=== PATIENT | male | born 1950 | race Native Hawaiian/Other Pacific Islander ===

== ENCOUNTER 2016-10-10 07:19 | Outpatient (CLI) | payer OTHER ==
[2017-03-10] MEDS ORDERED: BAYER ASPIRIN E81 MG PO (01:57)
[2017-03-10] MEDS ORDERED: BENICAR20 MG PO (01:58)
[2017-03-10] MEDS ORDERED: HYDR25TA60 PO (01:59)
[2017-03-10] MEDS ORDERED: SPIRONOLACT25 MG PO (01:59)
[2017-03-10] MEDS ORDERED: PACERONE200 MG PO (02:00)
[2017-03-10] MEDS ORDERED: NITROSTAT0.4 MG SL (02:01)
== END 2016-10-10 08:19 | disposition home or self-care (01) ==
LOC: NM 07:19
DX: R07.89 Other chest pain (principal); R06.02 Shortness of breath
CPT/HCPCS: A9500

== ENCOUNTER 2017-03-10 01:44 | Inpatient (IN) | payer OTHER ==
[~2017-03-10] VITALS: Ht 180.3 cm; Wt 112.5 kg
[2017-03-10] VITALS (41 sets, daily range): BP systolic 85–126; BP diastolic 46–85; TEMP 97.8–98.2; Ht 180.3 cm; Wt 112.5 kg
[2017-03-10] MEDS ORDERED: BAYER ASPIRIN E81 MG PO ×2 (01:57)
[2017-03-10] MEDS ORDERED: BENICAR20 MG PO ×2 (01:58)
[2017-03-10] MEDS ORDERED: HYDR25TA60 PO ×2 (01:59)
[2017-03-10] MEDS ORDERED: SPIRONOLACT25 MG PO ×2 (01:59)
[2017-03-10] MEDS ORDERED: PACERONE200 MG PO ×2 (02:00)
[2017-03-10] MEDS ORDERED: NITROSTAT0.4 MG SL ×2 (02:01)
[2017-03-10 02:33] LABS: PLATELET COUNT 236 K/uL (142-355)
[2017-03-10 02:42] LABS: POTASSIUM 3.7 mmol/L (3.6-5.2); SODIUM 139 mmol/L (136-145)
[2017-03-10 10:03] LABS: PLATELET COUNT 215 K/uL (142-355)
[2017-03-10 10:11] LABS: POTASSIUM 3.8 mmol/L (3.6-5.2); SODIUM 139 mmol/L (136-145)
[2017-03-11] VITALS (11 sets, daily range): BP systolic 104–128; BP diastolic 47–80; TEMP 97.2–98
[2017-03-11 06:20] LABS: PLATELET COUNT 208 K/uL (142-355)
[2017-03-11 06:34] LABS: POTASSIUM 4.3 mmol/L (3.6-5.2); SODIUM 135 mmol/L (136-145)
== END 2017-03-11 13:35 | disposition home or self-care (01) | DRG 310 ==
LOC: ED 01:44 → MED/SURG 03:45 → ICU 03:45
PROVIDERS: Emergency Medicine
DX: I48.91 Unspecified atrial fibrillation (principal)
CPT/HCPCS: 36415; 80053; 82550; 83735; 83880; 84100; 84484; 85027; 85610; 85730; 86141; 93005; 96361; 96372; 96374; 96376; 99285; J1644; J3475; J3490

== ENCOUNTER 2017-03-14 08:42 | Emergency (ER) | payer OTHER ==
[~2017-03-14] VITALS: Ht 181.6 cm; Wt 112.5 kg
[~2017-03-14 08:42] MED LIST: BAYER ASPIRIN E81 MG PO; BENICAR20 MG PO; HYDR25TA60 PO; NITROSTAT0.4 MG SL; PACERONE200 MG PO; SPIRONOLACT25 MG PO
[2017-03-14 09:23] LABS: PLATELET COUNT 228 K/uL (142-355); SODIUM 136 mmol/L (136-145)
[2017-03-14 09:43] LABS: PARTIAL THROMBOPLASTIN TIME 26.5 SECONDS (24.5-33.6)
[2017-03-14 12:16] VITALS: BP 113/76; TEMP 98
== END 2017-03-14 12:27 | disposition home or self-care (01) ==
LOC: ED 08:42
PROVIDERS: Specialist
DX: I48.91 Unspecified atrial fibrillation (principal); R00.8 Other abnormalities of heart beat
CPT/HCPCS: 36415; 80053; 82550; 83735; 83880; 84100; 84484; 85027; 85379; 85610; 85730; 93005; 96374; 99284; J0282

== ENCOUNTER 2018-01-01 16:29 | Outpatient (CLI) | payer OTHER | END 2018-01-01 19:38 | disposition home or self-care (01) | LOC: US 16:29 | DX: R60.0 Localized edema (principal) ==

== ENCOUNTER 2018-11-25 11:07 | Outpatient (CLI) | payer OTHER ==
[2018-11-25 11:40] LABS: PLATELET COUNT 215 K/uL (142-355)
[2018-11-25 11:50] LABS: POTASSIUM 4.6 mmol/L (3.6-5.2)
== END 2018-11-25 20:07 | disposition home or self-care (01) ==
LOC: LABW 11:07
PROVIDERS: Internal Medicine Cardiovascular Disease
DX: Z79.899 Other long term (current) drug therapy (principal); E78.5 Hyperlipidemia, unspecified
CPT/HCPCS: 36415; 80053; 80061; 85027

== ENCOUNTER 2019-10-16 16:39 | Observation (INO) | payer OTHER ==
[~2019-10-16] VITALS: Ht 180.3 cm; Wt 108.6 kg
[2019-10-16 16:53] VITALS: BP 91/35; TEMP 97.4
[2019-10-16 17:30] LABS: PLATELET COUNT 240 K/uL (142-355)
[2019-10-16 17:33] LABS: SODIUM 145 mmol/L (136-145)
[2019-10-16 17:36] LABS: PARTIAL THROMBOPLASTIN TIME 20.8 SECONDS (24.5-33.6)
[2019-10-16 18:21] VITALS: BP 108/56
[2019-10-16 19:15] VITALS: BP 104/54
[2019-10-16 19:45] VITALS: BP 119/53
[2019-10-16 20:14] VITALS: BP 119/62; TEMP 98.2; Ht 180.3 cm; Wt 108.6 kg
--- NOTE | 2019-10-16 22:32 | NUR ---
10/16/20191999 PT TO ROOM 1107 DX CHESTPAIN.PT BROUGHT IN FROM ER VIA WHEELCAHIR.SALINE LOCK INTACT 20 GAUDGE TO LT AC.ORIENTED TO ROOM CALL LIGHT WITHIN REACH. PRESENT IN ROOM.CC
[2019-10-17] VITALS: BP 122/63; TEMP 98.1
--- NOTE | 2019-10-17 02:17 | NUR ---
PT IS WEARING O2 VIA NC AT 2LPM AT THIS TIME WHILE RT WAS PERFORMING PTS. EKG.
--- NOTE | 2019-10-17 02:48 | NUR ---
10/17/2019 0155 NOTED ON HEART MONITOR A CHANGE IN HEART RATE WAS IRREGULAR JUMPING FROM 50 GOING TO 130-150.PT WAS IN BED SLEEPING NO DISTRESS NOTED. VITAL SIGNS OBTAINED B/P 104/62 O2 SATURATION 90-91 PLACED OXYGEN ON HIM.PT STATES HE IS NOT HAVING ANY DISTRESS.RESP AND LAB CALLED TO COME AND DRAW EKG AND CE NOW.CC 10/17/2019 0225 WENT TO ER SPOKE WITH PHYSICAN SHOWED HER EKG WHICH SHOWED AFIB RBBB.ALSO TOLD HER WE HAVE DRAWN CE IN PROGRESS.SHE SAID TO GO AHEAD AND GIVE HIM HIS AMIODARONE 100MG WHICH IS HIS REGULAR DAILY MEDICATION.PT STATES HE TOOK HIS MEICATION YESTERDAY MORNING.CC
--- NOTE | 2019-10-17 02:56 | NUR ---
10/17/2019 0228 AMIODARONE 100MG GIVEN.PT IS NO DISTRESS AT THIS TIME CALL LIGHT WITHIN RATE.HEART RATE IS IN 140-150.
--- NOTE | 2019-10-17 03:51 | NUR ---
10/17/2019 0340 ER PHYSICAN NOTIFIED OF PATIENT HEART RATE STILL IN 140-150 AFTER RECEIVING MEDICATION AMIODARONE 100MG NEW ORDER RECEIVED TO GIVE FLUID BOLUS 200-300ML.B/P 113/78 140-150.OXYGEN 93 PERCENT.. 10/17/2019 0400 NOTICED HEART RATE ON TELEMENTRY CHANGED TO 63.AT SAME TIME DR. PETIT WALKED IN TOLD HER ABOUT HEART RATE CHANGE. WENT IN TO SPEAK WITH PATIENT ABOUT PLAN OF CARE.PT SAID HE WOULD BE FINE TO GO TO [facility] TO SEE CONSTRUCTION JOB COST ESTIMATOR FOR CARE. SAID NO NEED TO GIVE FLUIDS AT THIS TIME.SHE TOLD PATIENT SHE WILL LET HIM KNOW ANY FURTHER DETAILS CONCERNING TRANSFER.CC
[2019-10-17 04:00] VITALS: BP 113/78; TEMP 98.6
--- NOTE | 2019-10-17 04:05 | NUR ---
10/17/2019 0408 HEART RATE 77 ON HEART MONITOR NO ACUTE DISTRESS NOTED.CC
--- NOTE | 2019-10-17 04:46 | NUR ---
10/17/2019 0440 WILL HOLD TRANSFER AT THIS TIME PER STATED PER ER NURSE CU[place].CC
--- NOTE | 2019-10-17 05:21 | NUR ---
10/17/2019 0520 SPOKE WITH PATIENT CONCERNING CHANGE IN PLAN . CANCELLED TRANSFER TO [facility].WILL BE TRANSFERRING TO [facility]. SAID SHE SPOKE WITH ACCEPTING PHYSICAN HOSP IN GROUP WHICH HAS ACCEPTED PATIENT.CC
--- NOTE | 2019-10-17 06:06 | NUR ---
10/17/2019 0550 SPOKE WITH JANELL BATOOL TO GIVE REPORT FOR TRANSFER.PT IS GOING TO ROOM [address]ROY ONOFRE CARDIOGOLIST IN GROUP WITH DR. STEWART.CC
--- NOTE | 2019-10-17 06:32 | NUR ---
10/17/2019 0635 PT CARRIED OUT VIA STRETCHER PER EMS TO [facility] CCU ROOM 131.
--- NOTE | 2019-10-17 10:32 | NUR ---
Patient was admited with Chest Pain, Abdominla Pain, epigastric burning a first time occurance, pain started after eating, HTN, non-smoked, 69YO male, increase MCV, and is nitroglycerin, and is on a 2 gm Na diet plan. Patient is 5'11' at 239.5 lbs. IBW= 172+/-10% (155-189 lbs.) kcal needs 2000 kcal/day x 25, x 30 = 2345, x 35 = 2700, x 40 = 3100 kcal/day, Protein needs x .8 to 1.5 = 63 to 117 grams per day. BMI = 33.46 and is Class I Obesity and is 140% IBW. Recommend: 1-NCS High Fiber Cardiac Diet and may want to avoid acid foods 2-Healthier Eating Habits
== END 2019-10-17 19:07 | disposition short-term general hospital (02) ==
LOC: ED 16:39 → MED/SURG 19:20
PROVIDERS: Emergency Medicine; ADMIT Family Medicine
DX: I48.91 Unspecified atrial fibrillation (principal); R07.89 Other chest pain; E86.0 Dehydration; I10 Essential (primary) hypertension; R73.9 Hyperglycemia, unspecified
CPT/HCPCS: 36415; 80053; 82550; 82553; 82962; 83036; 83690; 83735; 84484; 85027; 85610; 85730; 93005; 94760; 96360; 96365; 96375; 99220; 99284; G0378; J3490

== ENCOUNTER 2019-10-17 06:43 | Outpatient (CLI) | payer OTHER | END 2019-10-17 07:56 | disposition short-term general hospital (02) | LOC: AMB 06:43 | DX: R94.31 Abnormal electrocardiogram [ECG] [EKG] (principal); I45.2 Bifascicular block | CPT/HCPCS: A0425; A0427 ==

== ENCOUNTER 2019-11-03 11:13 | Outpatient (CLI) | payer OTHER | END 2019-11-03 20:22 | disposition home or self-care (01) | LOC: LABW 11:13 | DX: I48.91 Unspecified atrial fibrillation (principal) | CPT/HCPCS: 36415; 85610 ==

== ENCOUNTER 2019-11-09 05:28 | Outpatient (CLI) | payer OTHER | END 2019-11-09 22:17 | disposition home or self-care (01) | LOC: LABW 05:28 | DX: I48.91 Unspecified atrial fibrillation (principal) | CPT/HCPCS: 36415; 85610 ==

== ENCOUNTER 2019-11-25 15:28 | Outpatient (CLI) | payer OTHER | END 2019-11-25 19:15 | disposition home or self-care (01) | LOC: US 15:28 | DX: I73.9 Peripheral vascular disease, unspecified (principal) ==

== ENCOUNTER 2019-12-08 11:28 | Outpatient (CLI) | payer OTHER | END 2019-12-08 19:22 | disposition home or self-care (01) | LOC: LABW 11:28 | DX: Z51.81 Encounter for therapeutic drug level monitoring (principal); Z79.899 Other long term (current) drug therapy | CPT/HCPCS: 36415; 85610 ==

== ENCOUNTER 2019-12-15 21:59 | Outpatient (CLI) | payer OTHER | END 2019-12-15 22:29 | disposition home or self-care (01) | LOC: LABW 21:59 | DX: I48.91 Unspecified atrial fibrillation (principal) | CPT/HCPCS: 36415; 85610 ==

== ENCOUNTER 2020-04-24 13:00 | Outpatient (CLI) | payer OTHER | END 2020-04-24 20:05 | disposition home or self-care (01) | LOC: LABW 13:00 | DX: I48.91 Unspecified atrial fibrillation (principal) | CPT/HCPCS: 36415; 85610 ==

== ENCOUNTER 2020-05-17 09:00 | Outpatient (CLI) | payer OTHER | END 2020-05-17 19:42 | disposition home or self-care (01) | LOC: LABW 09:00 | DX: I48.91 Unspecified atrial fibrillation (principal) | CPT/HCPCS: 36415; 85610 ==

== ENCOUNTER 2020-05-25 08:42 | Outpatient (CLI) | payer OTHER | END 2020-05-25 21:04 | disposition home or self-care (01) | LOC: LABW 08:42 | DX: I48.91 Unspecified atrial fibrillation (principal) | CPT/HCPCS: 36415; 85610 ==

== ENCOUNTER 2020-07-04 08:04 | Outpatient (CLI) | payer OTHER | END 2020-07-04 19:26 | disposition home or self-care (01) | LOC: LABW 08:04 | DX: I48.91 Unspecified atrial fibrillation (principal) | CPT/HCPCS: 36415; 85610 ==

== ENCOUNTER 2020-07-11 07:54 | Outpatient (CLI) | payer OTHER | END 2020-07-12 00:18 | disposition home or self-care (01) | LOC: US 07:54 → LABW 07:54 | DX: M25.561 Pain in right knee (principal); M17.11 Unilateral primary osteoarthritis, right knee; M54.5 Low back pain; I73.9 Peripheral vascular disease, unspecified; M51.37 Other intervertebral disc degeneration, lumbosacral region | CPT/HCPCS: 36415; 85610 ==

== ENCOUNTER 2020-07-20 08:26 | Outpatient (CLI) | payer OTHER | END 2020-07-20 22:12 | disposition home or self-care (01) | LOC: LABW 08:26 | DX: I48.91 Unspecified atrial fibrillation (principal) | CPT/HCPCS: 36415; 85610 ==

== ENCOUNTER 2020-08-14 08:31 | Outpatient (CLI) | payer OTHER | END 2020-08-14 19:04 | disposition home or self-care (01) | LOC: LABW 08:31 | DX: I48.91 Unspecified atrial fibrillation (principal) | CPT/HCPCS: 36415; 85610 ==

== ENCOUNTER 2020-10-09 08:41 | Outpatient (CLI) | payer OTHER | END 2020-10-09 21:06 | disposition home or self-care (01) | LOC: LABW 08:41 | PROVIDERS: ATTEND Internal Medicine Cardiovascular Disease | DX: I48.91 Unspecified atrial fibrillation (principal) | CPT/HCPCS: 36415; 85610 ==

== ENCOUNTER 2020-10-25 07:12 | Outpatient (CLI) | payer OTHER | END 2020-10-25 19:17 | disposition home or self-care (01) | LOC: LABW 07:12 | PROVIDERS: ATTEND Internal Medicine Cardiovascular Disease | DX: I48.91 Unspecified atrial fibrillation (principal) | CPT/HCPCS: 36415; 85610 ==

== ENCOUNTER 2020-10-27 07:56 | Outpatient (CLI) | payer OTHER | END 2020-10-27 19:33 | disposition home or self-care (01) | LOC: LABW 07:56 | PROVIDERS: ATTEND Internal Medicine Cardiovascular Disease | DX: I48.91 Unspecified atrial fibrillation (principal) | CPT/HCPCS: 36415; 85610 ==

== ENCOUNTER 2020-10-31 07:54 | Outpatient (CLI) | payer OTHER | END 2020-10-31 21:27 | disposition home or self-care (01) | LOC: LABW 07:54 | PROVIDERS: ATTEND Internal Medicine Cardiovascular Disease | DX: I48.91 Unspecified atrial fibrillation (principal) | CPT/HCPCS: 36415; 85610 ==

== ENCOUNTER 2020-11-03 08:06 | Outpatient (CLI) | payer OTHER | END 2020-11-03 22:56 | disposition home or self-care (01) | LOC: LABW 08:06 | PROVIDERS: ATTEND Internal Medicine Cardiovascular Disease | DX: I48.91 Unspecified atrial fibrillation (principal) | CPT/HCPCS: 36415; 85610 ==

== ENCOUNTER 2020-11-13 08:48 | Outpatient (CLI) | payer OTHER | END 2020-11-13 19:15 | disposition home or self-care (01) | LOC: LABW 08:48 | PROVIDERS: ATTEND Internal Medicine Cardiovascular Disease | DX: I48.91 Unspecified atrial fibrillation (principal) | CPT/HCPCS: 36415; 85610 ==

== ENCOUNTER 2020-11-20 08:08 | Outpatient (CLI) | payer OTHER | END 2020-11-20 19:25 | disposition home or self-care (01) | LOC: LABW 08:08 | PROVIDERS: ATTEND Internal Medicine Cardiovascular Disease | DX: I48.91 Unspecified atrial fibrillation (principal) | CPT/HCPCS: 36415; 85610 ==

== ENCOUNTER 2020-11-22 08:23 | Outpatient (CLI) | payer OTHER | END 2020-11-22 21:37 | disposition home or self-care (01) | LOC: LABW 08:23 | PROVIDERS: ATTEND Internal Medicine Cardiovascular Disease | DX: I48.91 Unspecified atrial fibrillation (principal) | CPT/HCPCS: 36415; 85610 ==

== ENCOUNTER 2020-11-27 08:07 | Outpatient (CLI) | payer OTHER | END 2020-11-27 19:19 | disposition home or self-care (01) | LOC: LABW 08:07 | PROVIDERS: ATTEND Internal Medicine Cardiovascular Disease | DX: I48.91 Unspecified atrial fibrillation (principal) | CPT/HCPCS: 36415; 85610 ==

== ENCOUNTER 2020-12-04 08:29 | Outpatient (CLI) | payer OTHER | END 2020-12-04 22:48 | disposition home or self-care (01) | LOC: LABW 08:29 | PROVIDERS: ATTEND Internal Medicine Cardiovascular Disease | DX: I48.91 Unspecified atrial fibrillation (principal) | CPT/HCPCS: 36415; 85610 ==

== ENCOUNTER 2020-12-18 07:45 | Outpatient (CLI) | payer OTHER | END 2020-12-18 22:08 | disposition home or self-care (01) | LOC: LABW 07:45 | PROVIDERS: ATTEND Internal Medicine Cardiovascular Disease | DX: I48.91 Unspecified atrial fibrillation (principal) | CPT/HCPCS: 36415; 85610 ==

== ENCOUNTER 2020-12-29 08:12 | Outpatient (CLI) | payer OTHER | END 2020-12-29 21:45 | disposition home or self-care (01) | LOC: LABW 08:12 | PROVIDERS: ATTEND Internal Medicine Cardiovascular Disease | DX: I48.91 Unspecified atrial fibrillation (principal) | CPT/HCPCS: 36415; 85610 ==

== ENCOUNTER 2021-01-02 08:56 | Outpatient (CLI) | payer OTHER | END 2021-01-02 20:02 | disposition home or self-care (01) | LOC: LABW 08:56 | PROVIDERS: ATTEND Internal Medicine Cardiovascular Disease | DX: I48.91 Unspecified atrial fibrillation (principal) | CPT/HCPCS: 36415; 85610 ==

== ENCOUNTER 2021-01-22 08:03 | Outpatient (CLI) | payer OTHER | END 2021-01-22 19:40 | disposition home or self-care (01) | LOC: LABW 08:03 | PROVIDERS: ATTEND Internal Medicine Cardiovascular Disease | DX: I48.91 Unspecified atrial fibrillation (principal) | CPT/HCPCS: 36415; 85610 ==

== ENCOUNTER 2021-01-24 08:07 | Outpatient (CLI) | payer OTHER | END 2021-01-24 21:14 | disposition home or self-care (01) | LOC: LABW 08:07 | PROVIDERS: ATTEND Internal Medicine Cardiovascular Disease | DX: I48.91 Unspecified atrial fibrillation (principal) | CPT/HCPCS: 36415; 85610 ==

== ENCOUNTER 2021-03-08 16:47 | Emergency (ER) | payer OTHER ==
[~2021-03-08] VITALS: Ht 180.3 cm; Wt 108.4 kg
[2021-03-08 18:22] VITALS: BP 121/52; TEMP 97.8
== END 2021-03-08 18:22 | disposition home or self-care (01) ==
LOC: ED 16:47
DX: S41.151A Open bite of right upper arm, initial encounter (principal); W54.0XXA Bitten by dog, initial encounter; Y92.098 Other place in other non-institutional residence as the place of occurrence of the external cause
CPT/HCPCS: 90472; 90715; 99283

== ENCOUNTER 2021-03-10 21:01 | Emergency (ER) | payer OTHER ==
[~2021-03-10] VITALS: Ht 180.3 cm; Wt 101.6 kg
[2021-03-10 21:50] VITALS: BP 120/59; TEMP 98.8
== END 2021-03-10 21:52 | disposition home or self-care (01) ==
LOC: ED 21:01
DX: Z48.00 Encounter for change or removal of nonsurgical wound dressing (principal)
CPT/HCPCS: 99282

== ENCOUNTER 2021-03-13 21:22 | Emergency (ER) | payer OTHER ==
[~2021-03-13] VITALS: Ht 180.3 cm; Wt 101.6 kg
[2021-03-13 21:33] VITALS: TEMP 98.6
[2021-03-13 22:25] VITALS: BP 108/62
== END 2021-03-13 22:25 | disposition home or self-care (01) ==
LOC: ED 21:22
DX: Z51.89 Encounter for other specified aftercare (principal)
CPT/HCPCS: 99281

== ENCOUNTER 2022-11-14 09:10 | Outpatient (CLI) | payer OTHER | END 2022-11-14 19:24 | disposition home or self-care (01) | LOC: US 09:10 | PROVIDERS: ATTEND Internal Medicine Cardiovascular Disease | DX: R09.89 Other specified symptoms and signs involving the circulatory and respiratory systems (principal) ==